=== PATIENT | female | born 1960 | race Two or more races ===

== ENCOUNTER 2023-12-05 06:29 | Day surgery (SDC) | payer MEDICARE, MEDICAID, SELFPAY ==
[2023-11-29 09:44] VITALS: BMI 24.4
--- NOTE | 2023-12-01 13:01 | HO.ANESPROP2 ---
Documented by User: Nandini Rebollar NP 12/01/23 13:01 HPI - Anesthesia Eval Consult details Narrative: 63yo F for Left Cataract Extraction IOL Insertion No previous cataract on record s/p renal transplant Anesthesia Pre-Procedure Meds Is the patient on any of the following meds?: GLP1/DPP4 PMFSH Past Medical History Medical History Immunosuppressed status Systemic lupus erythematosus Seasonal allergic rhinitis Renal insufficiency syndrome Early menopause Lupus nephritis HTN (hypertension) Hypercholesterolemia Diabetes Encounter for dual-energy x-ray absoptiometry review GERD (gastroesophageal reflux disease) Sleep apnea Surgical History Surgical History S/P kidney transplant History of right cataract surgery History of esophagogastroduodenoscopy (EGD) H/O colonoscopy Social History Social History Patient Tobacco Use Status: Never used Tobacco Use of substances other than those prescribed or required for medical reasons: No Are you DNR?: No Advance Directives: No Advance Directives Information Provided: Yes Advance Directives on File: No Recently lost weight without trying: No Nutrition Risks: No Nutritional Risk Patient : No : No Meds Allergies Allergy/AdvReac Type Severity Reaction Status Date / Time mycophenolate mofetil Allergy Gastrointestinal Verified 12/05/23 06:42 [From CellCept] Upset mycophenolic acid Allergy Gastrointestinal Verified 12/05/23 06:42 [From Myfortic] Upset Home Medications ?Medication ?Instructions ?Recorded ?Confirmed ?Last Taken ?Type amoxicillin 500 mg capsule 2,000 mg PO ONCE 11/29/23 11/29/23 Unknown History betamethasone dipropionate 0.05 % 1 appl topical BID PRN itch 11/29/23 11/29/23 Unknown History topical cream calcium carbonate 600 mg-vitamin 1 tab PO BID 11/29/23 11/29/23 Unknown History D3 20 mcg (800 unit) chewable tablet (Caltrate 600 plus D) clindamycin phosphate 1 % topical 1 appl topical BID 11/29/23 11/29/23 Unknown History swab ferrous sulfate 325 mg (65 mg 325 mg PO QAM 11/29/23 11/29/23 Unknown History iron) tablet hydroxychloroquine 200 mg tablet 200 mg PO DAILY 11/29/23 11/29/23 Unknown History (Plaquenil) insulin glargine 100 unit/mL (3 14 unit subcut BEDTIME 11/29/23 11/29/23 Unknown History mL) subcutaneous pen (Basaglar KwikPen U-100 Insulin) linagliptin 5 mg tablet (Tradjenta) 5 mg PO DAILY 11/29/23 11/29/23 12/02/23 History omeprazole 40 mg capsule,delayed 40 mg PO DAILY 11/29/23 11/29/23 12/05/23 04:40 History release tacrolimus 1 mg capsule, 1 mg PO BID 11/29/23 11/29/23 Unknown History immediate-release Exam Height,Weight and Vital Signs: Height 5 ft 11.26 in Weight 80 kg Assessment and Plan Assessment Anesthesia Assessment: Chart Reviewed Documented by User: Kandice Van MD 12/05/23 08:39 PMFSH Past Medical History Medical History Immunosuppressed status Systemic lupus erythematosus Seasonal allergic rhinitis Renal insufficiency syndrome Early menopause Lupus nephritis HTN (hypertension) Hypercholesterolemia Diabetes Encounter for dual-energy x-ray absoptiometry review GERD (gastroesophageal reflux disease) Sleep apnea Family History Family history of problems with anesthesia: No Surgical History Surgical History S/P kidney transplant History of right cataract surgery History of esophagogastroduodenoscopy (EGD) H/O colonoscopy History of Problems with Anesthesia: No Social History Social History Patient Tobacco Use Status: Never used Tobacco Use of substances other than those prescribed or required for medical reasons: No Are you DNR?: No Advance Directives: No Advance Directives Information Provided: Yes Advance Directives on File: No Recently lost weight without trying: No Nutrition Risks: No Nutritional Risk Patient : No : No Meds Allergies Allergy/AdvReac Type Severity Reaction Status Date / Time mycophenolate mofetil Allergy Gastrointestinal Verified 12/05/23 06:42 [From CellCept] Upset mycophenolic acid Allergy Gastrointestinal Verified 12/05/23 06:42 [From Myfortic] Upset Home Medications ?Medication ?Instructions ?Recorded ?Confirmed ?Last Taken ?Type amoxicillin 500 mg capsule 2,000 mg PO ONCE 11/29/23 11/29/23 Unknown History betamethasone dipropionate 0.05 % 1 appl topical BID PRN itch 11/29/23 11/29/23 Unknown History topical cream calcium carbonate 600 mg-vitamin 1 tab PO BID 11/29/23 11/29/23 Unknown History D3 20 mcg (800 unit) chewable tablet (Caltrate 600 plus D) clindamycin phosphate 1 % topical 1 appl topical BID 11/29/23 11/29/23 Unknown History swab ferrous sulfate 325 mg (65 mg 325 mg PO QAM 11/29/23 11/29/23 Unknown History iron) tablet hydroxychloroquine 200 mg tablet 200 mg PO DAILY 11/29/23 11/29/23 Unknown History (Plaquenil) insulin glargine 100 unit/mL (3 14 unit subcut BEDTIME 11/29/23 11/29/23 Unknown History mL) subcutaneous pen (Basaglar KwikPen U-100 Insulin) linagliptin 5 mg tablet (Tradjenta) 5 mg PO DAILY 11/29/23 11/29/23 12/02/23 History omeprazole 40 mg capsule,delayed 40 mg PO DAILY 11/29/23 11/29/23 12/05/23 04:40 History release tacrolimus 1 mg capsule, 1 mg PO BID 11/29/23 11/29/23 Unknown History immediate-release Exam Airway Mallampati Class: III TM Dist: >3cm Neck ROM: Full Heart: rrr Lungs: cta Assessment and Plan Assessment Anesthesia Assessment: Anesthesia Plan Discussed Final Anesthetic Review Family History of Problems with Anesthesia: No History of Problems with Anesthesia: No NPO: Yes ASA Class: III Final Preanesthetic Review: No Changes in Pt Med Stat, Meds/Allgs Chart Reviewed, Consent Obtained/Reviewed and Anes Risks/Benef Reviewed Patient Risk: Intermediate Procedure Risk: Low Anesthetic Plan Anesthetic Plan: MAC: Disposition: Standard PACU
[2023-12-05 06:48] VITALS: BP 140/75; PULSE 54; RESP 15; TEMP 35.9; O2SAT 99
[2023-12-05] MEDS: Tetracaine HCl/PF 0.5% Oph Sol 4 ML DROPS 1 DROP EYE-LEFT (06:58)
[2023-12-05] MEDS: Cyclopentolate 1 % Ophth Sol 2 ML DRPBTL 1 DROP EYE-LEFT ×3 (07:04→07:18)
[2023-12-05] MEDS: Tropicamide 1 % Ophth Sol 3 ML BTL 1 DROP EYE-LEFT ×3 (07:07→07:19)
[2023-12-05] MEDS: Ketorolac Tromethamine 0.5% Op 10 ML DROPS 1 DROP EYE-LEFT ×3 (07:09→07:20)
[2023-12-05] MEDS: Phenylephrine HCL 2.5% Oph SoL 2 ML BOTTLE 1 DROP EYE-LEFT ×3 (07:10→07:21)
[2023-12-05] MEDS: Lactated Ringers 500 ML 50 ML IV (07:12)
[2023-12-05 07:28] LABS: Glucose, Whole Blood 96 mg/dL (60-115)
--- NOTE | 2023-12-05 08:00 | MHC.SHP ---
Pre-Procedural Eval Section A - 24 Hr Update-Section A only Date of Service: 12/05/23 The patient is an INPATIENT: No Changes since office visit: No Cold of Flu in the past 2 weeks, No New Medical Problems, No Changes in Medication and No Patient answered all questions The patient has been examined within 24 hours of the surgical procedure. The History & Physical has been completed within 30 days and I have reviewed it.: Yes Section B - Complete if H&P > 30 days Chief Complaint: Age-related nuclear cataract, left eye Allergies: Allergies Allergy/AdvReac Type Severity Reaction Status Date / Time mycophenolate mofetil Allergy Gastrointestinal Verified 12/05/23 06:42 [From CellCept] Upset mycophenolic acid Allergy Gastrointestinal Verified 12/05/23 06:42 [From Myfortic] Upset Plan Diagnosis/Plan: Unchanged I have reviewed the history and physical and performed a pertinent physical examination on my patient. No changes have occurred unless specified. Time Spent With Patient Time: Total time managing care of this patient today ____ minutes.
--- NOTE | 2023-12-05 08:00 | HO.PNOPHT ---
Ophthalmology Procedure Procedure Date of Service: 12/05/23 Ophthalmology Viscoelastic: Healon Duet Dual Pack Pro Ophthalmology Lenses: IOL Acrysof MP - [id number] (19) Procedure Notes: PREOPERATIVE DIAGNOSIS: Decreased visual acuity left eye secondary to cataract POSTOPERATIVE DIAGNOSIS: Same PROCEDURE: Left cataract extraction with intraocular lens insertion SURGEON: Preet Segura M.D. ANESTHESIA: Topical/MAC ESTIMATED BLOOD LOSS: None COMPLICATIONS: None After obtaining informed consent, the patient was brought to the operation room suite and placed in the supine position. After adequate sedation per anesthesia, topical drops of Tetracaine were given to the left eye. The eye was then prepped and draped in the usual sterile fashion. The operating room microscope was then positioned over the operative eye and a lid speculum placed. A paracentesis was created. Viscoelastic was then instilled into the anterior chamber. A three plane incision was then created temporally, utilizing a 2.85 mm keratome. Capsulotomy forceps were then utilized to create a circular tear capsulotomy. Hydrodissection and hydrodelineation were carried out until adequate mobilization of the nucleus occurred. Phacoemulsification was then utilized to remove the dense central nucleus followed by removal of the cortical material utilizing the automated aspiration irrigation unit. Viscoat elastic was instilled into the posterior capsular bag followed by placement of a posterior chamber intraocular lens without difficulty. The residual Viscoat elastic was then removed utilizing the automated IA machine. The wound was check and found to be watertight. The patient tolerated the procedure well and the lid speculum was removed. Intracameral injection of Vigamox 0.1 mL followed by a subtenon injection of Kenalog-40 0.2 mL were administered. The patient will be seen in the a.m.
[2023-12-05 08:28] VITALS: BP 136/65; PULSE 59; RESP 18; TEMP 36.6; O2SAT 100
== END 2023-12-05 09:00 | disposition home or self-care (01) ==
PROVIDERS: Visit Provider Ophthalmology
PROC: (CPT 66985; principal; 2023-12-05 08:30)
DX: H25.012 Cortical age-related cataract, left eye (principal); H54.7 Unspecified visual loss; H11.003 Unspecified pterygium of eye, bilateral; Z96.1 Presence of intraocular lens; E11.9 Type 2 diabetes mellitus without complications; M32.14 Glomerular disease in systemic lupus erythematosus; Z94.0 Kidney transplant status; M87.859 Other osteonecrosis, unspecified femur; G47.33 Obstructive sleep apnea (adult) (pediatric); Z79.4 Long term (current) use of insulin; Z79.84 Long term (current) use of oral hypoglycemic drugs; Z79.899 Other long term (current) drug therapy; Z88.8 Allergy status to other drugs, medicaments and biological substances
CPT/HCPCS: 66984; 82947; J2250; J3301; V2630

== ENCOUNTER 2023-12-12 05:42 | Day surgery (SDC) | payer MEDICARE, MEDICAID, SELFPAY ==
[2023-12-12 06:38] VITALS: BP 157/68; PULSE 88; RESP 20; TEMP 36.1; O2SAT 100; BMI 25.4
--- NOTE | 2023-12-12 06:51 | PC.NURSE ---
pt verbalized understanding of d/c
--- NOTE | 2023-12-12 08:00 | HO.PNOPHT ---
Ophthalmology Procedure Procedure Date of Service: 12/12/23 Ophthalmology Viscoelastic: Healon Endocoat OVD .85mL Ophthalmology Lenses: Not Applicable Procedure Notes: PREOPERATIVE DIAGNOSIS: Retained Nuclear lens material POSTOPERATIVE DIAGNOSIS: Same PROCEDURE: Right cataract extraction with intraocular lens insertion SURGEON: Preet Segura M.D. ANESTHESIA: Topical ESTIMATED BLOOD LOSS: None COMPLICATIONS: None After obtaining informed consent, the patient was brought to the operating room suite and placed in the supine position.Topical drops of Tetracaine were given to the right eye. The eye was then prepped and draped in the usual sterile fashion. The operating room microscope was then positioned over the operative eye and a lid speculum placed. Removal of the cretained lens material utilizing the automated aspiration irrigation unit. The residual Viscoelastic was then removed utilizing the automated IA machine. The wound was checked and found to be watertight. The patient tolerated the procedure well and the lid speculum was removed. Intracameral injection of Vigamox 0.1 mL . The patient will be seen in the a.m.
--- NOTE | 2023-12-12 08:00 | MHC.SHP ---
Pre-Procedural Eval Section A - 24 Hr Update-Section A only Date of Service: 12/12/23 The patient is an INPATIENT: No Changes since office visit: No Cold of Flu in the past 2 weeks, No New Medical Problems, No Changes in Medication and No Patient answered all questions The patient has been examined within 24 hours of the surgical procedure. The History & Physical has been completed within 30 days and I have reviewed it.: Yes Section B - Complete if H&P > 30 days Chief Complaint: Cataract (lens) fragments in eye following catarac Allergies: Allergies Allergy/AdvReac Type Severity Reaction Status Date / Time mycophenolate mofetil Allergy Gastrointestinal Verified 12/05/23 06:42 [From CellCept] Upset mycophenolic acid Allergy Gastrointestinal Verified 12/05/23 06:42 [From Myfortic] Upset Plan Diagnosis/Plan: Unchanged I have reviewed the history and physical and performed a pertinent physical examination on my patient. No changes have occurred unless specified. Time Spent With Patient Time: Total time managing care of this patient today ____ minutes.
[2023-12-12 08:04] LABS: Glucose, Whole Blood 125 mg/dL (60-115)
[2023-12-12 08:21] VITALS: BP 147/70; PULSE 61; RESP 16; TEMP 36.1; O2SAT 100
== END 2023-12-12 08:28 | disposition home or self-care (01) ==
PROVIDERS: Visit Provider Ophthalmology
PROC: (CPT 66985; principal; 2023-12-12 07:30)
DX: H59.022 Cataract (lens) fragments in eye following cataract surgery, left eye (principal); M32.9 Systemic lupus erythematosus, unspecified; E11.9 Type 2 diabetes mellitus without complications; I10 Essential (primary) hypertension; E78.00 Pure hypercholesterolemia, unspecified; Z94.0 Kidney transplant status; Z79.899 Other long term (current) drug therapy; Z79.84 Long term (current) use of oral hypoglycemic drugs; Z88.8 Allergy status to other drugs, medicaments and biological substances
CPT/HCPCS: 66840; 82947